=== PATIENT | female | born 1960 | race Caucasian/White ===

== ENCOUNTER → 2017-01-01 | Outpatient (CLI) | payer BC ==
--- OUTSIDE RECORDS SUMMARY | 2017-01-01 08:46 | XMS REPORT | Continuity of Care Document ---
Author Author [facility] Address Unknown Phone Unavailable Allergies Medications Problems Date Dx Coded Attending Type Code Diagnosis Diagnosed By 02/06/2014 HEAVENLY KOENIG APRN 461.0 SINUSITIS ACUTE MAXILLARY 02/06/2014 TETE POLLOCK APRN N 461.0 SINUSITIS ACUTE MAXILLARY 02/06/2014 SOCORRO RODRIGUES APRN L 461.0 SINUSITIS ACUTE MAXILLARY 02/06/2014 NOÉ DDS, SEVEN D 461.0 SINUSITIS ACUTE MAXILLARY 02/06/2014 YELITZA HULL DO K 461.0 SINUSITIS ACUTE MAXILLARY 02/06/2014 NOÉ DESAIS, SEVEN D 461.0 SINUSITIS ACUTE MAXILLARY 02/06/2014 MILLICENT GRANADOS APRN A 461.0 SINUSITIS ACUTE MAXILLARY 02/06/2014 MARK DDS, SHEILA M 461.0 SINUSITIS ACUTE MAXILLARY 02/26/2014 TETE POLLOCK APRN N 359.9 MYOPATHY UNSPECIFIED 02/26/2014 JOSS POLLOCK APRNCY N 461.8 OTHER ACUTE SINUSITIS 02/26/2014 JOSS POLLOCK APRNCY N 729.5 PAIN IN LIMB 02/26/2014 LILIA FERREIRA SOCORRO L 359.9 MYOPATHY UNSPECIFIED 02/26/2014 EATON JHON SOCORRO L 461.8 OTHER ACUTE SINUSITIS 02/26/2014 EATAMARA FERREIRA SOCORRO L 729.5 PAIN IN LIMB 02/26/2014 NOÉ DDS, SEVEN D 359.9 MYOPATHY UNSPECIFIED 02/26/2014 NOÉ DDSSEVEN D 461.8 OTHER ACUTE SINUSITIS 02/26/2014 NOÉ DDSSEVEN D 729.5 PAIN IN LIMB 02/26/2014 HULL BELLA INFANTEA K 359.9 MYOPATHY UNSPECIFIED 02/26/2014 HULL DO YELITZA K 461.8 OTHER ACUTE SINUSITIS 02/26/2014 HULL DO, YELITZA K 729.5 PAIN IN LIMB 02/26/2014 NOÉ DDS, SEVEN D 359.9 MYOPATHY UNSPECIFIED 02/26/2014 NOÉ DDS, SEVEN D 461.8 OTHER ACUTE SINUSITIS 02/26/2014 NOÉ DDS, SEVEN D 729.5 PAIN IN LIMB 02/26/2014 DARWIN LANDFILL [employer] TECHNICIAN, MILLICENT A 359.9 MYOPATHY UNSPECIFIED 02/26/2014 DARWIN LANDFILL [employer] FI[employer] TECHNICIAN, MILLICENT A 461.8 OTHER ACUTE SINUSITIS 02/26/2014 DARWIN LANDFILL [employer] TECHNICIAN, MILLICENT A 729.5 PAIN IN LIMB 02/26/2014 MARK DDS, SHEILA M 359.9 MYOPATHY UNSPECIFIED 02/26/2014 MARK DDS, SHEILA M 461.8 OTHER ACUTE SINUSITIS 02/26/2014 MARK DDS, SHEILA M 729.5 PAIN IN LIMB 03/28/2014 SOCORRO RODRIGUES APRN L 300.4 DYSTHYMIC DISORDER 03/28/2014 SOCORRO RODRIGUES APRN L 338.29 CHRONIC PAIN 03/28/2014 EATNANI MALONEY APRNSON L 599.0 URINARY TRACT INFECTION 03/28/2014 EATNANI MALONEY APRNSON L V58.69 HIGH RISK MEDICATION 03/28/2014 NOÉ DESAISSEVEN 300.4 DYSTHYMIC DISORDER 03/28/2014 NOÉ DESAISSEVEN D 338.29 CHRONIC PAIN 03/28/2014 NOÉ DESAISSEVEN 599.0 URINARY TRACT INFECTION 03/28/2014 NOÉ DESAISSEVEN V58.69 HIGH RISK MEDICATION 03/28/2014 HULL DO, YELITZA K 300.4 DYSTHYMIC DISORDER 03/28/2014 HULL DO, YELITZA K 338.29 CHRONIC PAIN 03/28/2014 HULL DO, YELITZA K 599.0 URINARY TRACT INFECTION 03/28/2014 HULL DO, YELITZA K V58.69 HIGH RISK MEDICATION 03/28/2014 NOÉ DESAIS, SEVEN D 300.4 DYSTHYMIC DISORDER 03/28/2014 NOÉ DDSSEVEN D 338.29 CHRONIC PAIN 03/28/2014 NOÉ DDS, SEVEN Hope 599.0 URINARY TRACT INFECTION 03/28/2014 NOÉ DDSSEVEN V58.69 HIGH RISK MEDICATION 03/28/2014 DARWIN FERREIRA, MILLICENT A 300.4 DYSTHYMIC DISORDER 03/28/2014 DARWIN FERREIRA, MILLICENT A 338.29 CHRONIC PAIN 03/28/2014 DARWIN FERREIRA MILLICENT A 599.0 URINARY TRACT INFECTION 03/28/2014 DARWIN FERREIRA MILLICENT A V58.69 HIGH RISK MEDICATION 03/28/2014 MARK DDS, SHEILA M 300.4 DYSTHYMIC DISORDER 03/28/2014 MARK DDS, SHEILA M 338.29 CHRONIC PAIN 03/28/2014 MARK DDS, SHEILA M 599.0 URINARY TRACT INFECTION 03/28/2014 MARK DDS, SHEILA M V58.69 HIGH RISK MEDICATION 05/01/2014 YELITZA HULL DO 616.10 VAGINITIS AND VULVOVAGINITIS UNSPECIFIED 05/01/2014 YELITZA HULL DO 788.43 NOCTURIA 05/01/2014 SEVEN UMANZOR DDS 616.10 VAGINITIS AND VULVOVAGINITIS UNSPECIFIED 05/01/2014 SEVEN UMANZOR DDS 788.43 NOCTURIA 05/01/2014 DARWIN DIAZMILLICENT Forbes A 616.10 VAGINITIS AND VULVOVAGINITIS UNSPECIFIED 05/01/2014 DARWIN DIAZMILLICENT Forbes A 788.43 NOCTURIA 05/01/2014 SHEILA FLORES DDS 616.10 VAGINITIS AND VULVOVAGINITIS UNSPECIFIED 05/01/2014 SHEILA FLORES DDS 788.43 NOCTURIA 06/20/2014 DARWINMILLICENT JACKSON APRN A V72.31 RESIDENT ASSISTANT EXAM, ROUTINE 06/20/2014 DARWINMILLICENT Forbes APRN A V76.10 BREAST CANCER SCREENING 06/20/2014 SHEILA FLORES DDS V72.31 RESIDENT ASSISTANT EXAM, ROUTINE 06/20/2014 SHEILA FLORES DDS V76.10 BREAST CANCER SCREENING Procedures Code [place] [address] CULTURE URINE 80691 UA LONG DIP 03/28 01074 URINE DRUG SCREEN (IN-HOUSE) 03/28/2014 56857 ROUTINE VENIPUNCTURE 05/01/2014 22819 UA LONG DIP 05/01 61127 A1C (RML) 2013 08737 CBC 05/02/2014 13380 CULTURE URINE THYANA THYROID ANALYZER 05/02/2014 26902 MAMMOGRAM DX, LEFT 06/20/2014 Results Encounters ACCT No. Visit Date/Time Discharge Status Pt. Type Provider Facility Loc./Unit Complaint [id number] 10/23/2014 16:54:00 10/23/2014 23: 59:59 CLS Outpatient SHEILA FLORES DDS [id number] 06/20/2014 14:32:00 06/20/2014 23: 59:59 CLS Outpatient MILLICENT GRANADOS APRN [id number] 05/10/2014 09:55:00 05/10/2014 23: 59:59 CLS Outpatient SEVEN UMANZOR DDS [id number] 05/01/2014 16:41:00 05/01/2014 23: 59:59 CLS Outpatient YELITZA HULL DO [id number] 04/10/2014 00:00:00 04/10/2014 23: 59:59 CLS Outpatient SEVEN UMANZOR DDS [id number] 03/28/2014 11:45:00 03/28/2014 23: 59:59 CLS Outpatient SOCORRO RODRIGUES APRN [id number] 02/26/2014 15:27:00 02/26/2014 23: 59:59 CLS Outpatient TETE POLLOCK APRN [id number] 02/06/2014 10:00:00 02/06/2014 23: 59:59 CLS Outpatient HEAVNELY KOENIG APRN
--- NOTE | 2017-01-01 19:20 | Diagnostic Imaging Report ---
Digital mammogram bilateral diagnostic. INDICATION: Followup exam. This study was compared to the prior exams of 03/06/15, 07/23/14 and 10/10/10. At this time, there are no current complaints. The current study was also evaluated with a Computer Aided Detection (CAD) system. FINDINGS: The fibroglandular tissue in both breasts is dense. This does limit the sensitivity of this exam. The previous study of 03/06/15 did suggest an asymmetric density in the medial aspect of the left breast on the craniocaudad view. This finding was felt to be related to superimposition of the breast parenchyma. That area of increased density is again evident and does not appear to have changed. Consequently, I do suspect that it is secondary to fibroglandular tissue alone. The overall appearance of the breasts has not changed significantly since the prior exam either. The patient did note that she has a lump in the lateral aspect of the right breast. This has been present for a number of years and has not changed. There is no definite mammographic abnormality to correspond to the lump. IMPRESSION: 1. There is no evidence of malignancy. 2. The patient should have her annual bilateral screening mammogram on schedule in December of 2017. ACR BI-RADS Category 1: Negative. Result letter will be mailed to the patient. Note: At least 10% of breast cancer is not imaged by mammography. Dictated by: Dictated on workstation # [id number]
== END ==
LOC: RAD 08:41
PROVIDERS: ATTEND Nurse Practitioner Family
DX: R92.8 Other abnormal and inconclusive findings on diagnostic imaging of breast (principal)
CPT/HCPCS: 77066